=== PATIENT | female | born 1945 | race Caucasian/White ===

== ENCOUNTER 2017-12-19 09:07 | Outpatient (CLI) | payer OTHER | END 2017-12-19 09:41 | disposition home or self-care (01) | LOC: NUCLEAR 09:07 | DX: M81.0 Age-related osteoporosis without current pathological fracture (principal); I10 Essential (primary) hypertension; E78.89 Other lipoprotein metabolism disorders; M54.5 Low back pain; E55.9 Vitamin D deficiency, unspecified; M89.8X0 Other specified disorders of bone, multiple sites; N63.10 Unspecified lump in the right breast, unspecified quadrant; N63.20 Unspecified lump in the left breast, unspecified quadrant ==

== ENCOUNTER 2018-11-30 09:38 | Outpatient (CLI) | payer OTHER | END 2018-11-30 09:53 | disposition home or self-care (01) | LOC: MAMO-SONO 09:38 | DX: Z12.31 Encounter for screening mammogram for malignant neoplasm of breast (principal); Z87.898 Personal history of other specified conditions; E66.3 Overweight; E66.8 Other obesity; F39 Unspecified mood [affective] disorder; M06.4 Inflammatory polyarthropathy; E55.9 Vitamin D deficiency, unspecified; M15.8 Other polyosteoarthritis; M54.5 Low back pain; M89.8X8 Other specified disorders of bone, other site; E78.89 Other lipoprotein metabolism disorders; M23.52 Chronic instability of knee, left knee; M23.92 Unspecified internal derangement of left knee; Z12.11 Encounter for screening for malignant neoplasm of colon ==